=== PATIENT | female | born 1980 | race Hispanic/Latino ===

== ENCOUNTER 2020-06-21 20:40 | Emergency (ER) | payer OTHER ==
[~2020-06-21] VITALS: Ht 165.1 cm; Wt 132.0 kg
[2020-06-21] MEDS ORDERED: SODIUM CHLORIDE 0.9% 1000ML 1,000 ML IV STA (20:59)
[2020-06-21] MEDS ORDERED: ACETAMINOPHEN 325 MG TAB PO ONE (21:00)
[2020-06-21] MEDS ORDERED: PIPER-TAZ 3.375 GM 50 ML IV ONE (21:00)
[2020-06-21] MEDS ORDERED: IBUPROFEN 200 MG TAB PO ONE (21:00)
[2020-06-21] MEDS ORDERED: SODIUM CHLORIDE 0.9% 1000ML 1,000 ML ONE (21:28)
[2020-06-21] MEDS ORDERED: PIPER-TAZ 3.375 GM 50 ML ONE (21:28)
[2020-06-21] MEDS ORDERED: ACETAMINOPHEN 325 MG TAB ONE (21:28)
[2020-06-21] MEDS ORDERED: INSULIN REGULAR, HUMAN 100 UNIT/1 ML 3ML VIAL IV ONE (22:00)
[2020-06-21] MEDS ORDERED: INSULIN REGULAR, HUMAN 100 UNIT/1 ML 3ML VIAL ONE (22:06)
[2020-06-21] MEDS ORDERED: ONDANSETRON HCL 4 MG ORAL DISINTEGRATING TAB ONE (22:50)
== END 2020-06-21 22:45 | disposition home or self-care (01) ==
LOC: FSED 21:00
DX: E11.65 Type 2 diabetes mellitus with hyperglycemia (principal); B34.9 Viral infection, unspecified; N94.9 Unspecified condition associated with female genital organs and menstrual cycle; F41.9 Anxiety disorder, unspecified
CPT/HCPCS: 80053; 85025; 99283; J1817; J2543; J7030; Q0162